=== PATIENT | female | born 2000 | race Caucasian/White ===

== ENCOUNTER 2022-01-30 12:42 | Emergency (ER) | payer MEDICAID ==
[~2022-01-30] VITALS: Ht 157.5 cm; Wt 77.0 kg
[2022-01-30 13:02] VITALS: BP 105/60
[2022-01-30] MEDS ORDERED: IBUPROFEN 600MG TABLET PO ONE (15:30)
[2022-01-30 15:48] LABS: CLARITY URINE CLOUDY (CLEAR); COLOR URINE YELLOW (YELLOW); KETONES URINE NEGATIVE (NEGATIVE); LEUKOCYTE ESTERASE URINE 3+ (NEGATIVE); NITRITE URINE NEGATIVE (NEGATIVE); OCCULT BLOOD URINE NEGATIVE (NEGATIVE); PROTEIN URINE TRACE (NEGATIVE); SPECIFIC GRAVITY URINE 1.022 (1.005-1.030)
[2022-01-30] MEDS ORDERED: IBUP-2029 MT (16:04)
[2022-01-30] MEDS ORDERED: CEPH500C2 MT (16:04)
== END 2022-01-30 16:49 | disposition home or self-care (01) ==
LOC: ER 12:42
DX: N30.90 Cystitis, unspecified without hematuria (principal)
CPT/HCPCS: 81003; 81025; 87077; 99283